=== PATIENT | female | born 1985 | race Two or more races ===

== ENCOUNTER 2016-11-01 21:32 | Emergency (ER) | payer SELFPAY ==
[2016-11-01 22:01] VITALS: BP 113/45
--- NOTE | 2016-11-01 22:05 | ER Document Report ---
ED Medical Screen (RME) - General Chief Complaint: Back Pain Stated Complaint: BODYACHES Notes: 31 yo female c/o low back, bilat hip and bilat leg pain x 1 week. reports injuring back while pouring grease out of 5 gallon bucket. + hx/o DDD, NF. feels familar to sciatic nerve pain. no fever. no bowel/bladder change. TRAVEL OUTSIDE OF THE [place] IN LAST 30 DAYS: No - Related Data Allergies/Adverse Reactions: fluoxetine HCl [From Prozac] Allergy (Intermediate, Verified 03/19/15 16:15) Hives Norgestimate-Ethinyl Estradiol * [From Ortho Tri-Cyclen Lo] Allergy ( Intermediate, Verified 03/19/15 16:15) Hives Past Medical History - Social History Chew tobacco use (# tins/day): No Frequency of alcohol use: Occasional Drug Abuse: None - Past Medical History Cardiac Medical History: Denies: Hx Heart Attack, Hx Hypertension Pulmonary Medical History: Reports: Hx Asthma Neurological Medical History: Denies: Hx Cerebrovascular Accident, Hx Seizures Renal/ Medical History: Denies: Hx Peritoneal Dialysis GI Medical History: Denies: Hx Hepatitis, Hx Hiatal Hernia, Hx Ulcer Infectious Medical History: Denies: Hx Hepatitis Past Surgical History: Denies: Hx Hysterectomy, Hx Mastectomy, Hx Open Heart Surgery, Hx Pacemaker - Immunizations Hx Diphtheria, Pertussis, Tetanus Vaccination: Yes Physical Exam - Vital signs Vitals: Temp Pulse Resp BP Pulse Ox 98.0 F 101 H 16 113/45 L 100 11/01/16 21:59 11/01/16 21:59 11/01/16 21:59 11/01/16 21:59 11/01/16 21:59 Course - Vital Signs Vital signs: Temp Pulse Resp BP Pulse Ox 98.0 F 101 H 16 113/45 L 100 11/01/16 21:59 11/01/16 21:59 11/01/16 21:59 11/01/16 21:59 11/01/16 21:59
[2016-11-02] MEDS ORDERED: HYDROMORPHONE HCL INJ/PF 2 MG/ML AMPULE IM ONE (01:31)
[2016-11-02] MEDS ORDERED: HYDROCODONE/ACETAMINOPHEN 5-325 MG 6 TAB/DSPK PO PRN (02:34)
--- NOTE | 2016-11-02 02:34 | ER Document Report ---
ED General - General Chief Complaint: Back Pain Stated Complaint: BODYACHES Notes: Patient is a 31-year-old female presents with complaint of low back pain radiates into her legs. The pain is mostly in the left side and radiates into her left leg. She's has a long history of low back pain with sciatica. She says it was exacerbated several days ago when she picked up a heavy bucket. Since then the pain is continued. Some numbness. No weakness into her leg. No loss of bowel control. No urinary retention. No fevers. No history of IV drug abuse. No other complaints this time. Pain feels very similar to pain she 's had the past. TRAVEL OUTSIDE OF THE [place] IN LAST 30 DAYS: No - Related Data Allergies/Adverse Reactions: fluoxetine HCl [From Prozac] Allergy (Intermediate, Verified 03/19/15 16:15) Hives Norgestimate-Ethinyl Estradiol * [From Ortho Tri-Cyclen Lo] Allergy ( Intermediate, Verified 03/19/15 16:15) Hives Past Medical History - Social History Smoking Status: Current Every Day Smoker Chew tobacco use (# tins/day): No Frequency of alcohol use: Occasional Drug Abuse: None Family History: Reviewed & Not Pertinent Patient has suicidal ideation: No Patient has homicidal ideation: No - Past Medical History Cardiac Medical History: Denies: Hx Heart Attack, Hx Hypertension Pulmonary Medical History: Reports: Hx Asthma Neurological Medical History: Denies: Hx Cerebrovascular Accident, Hx Seizures Renal/ Medical History: Denies: Hx Peritoneal Dialysis GI Medical History: Denies: Hx Hepatitis, Hx Hiatal Hernia, Hx Ulcer Infectious Medical History: Denies: Hx Hepatitis Past Surgical History: Reports: Hx Tubal Ligation. Denies: Hx Hysterectomy, Hx Mastectomy, Hx Open Heart Surgery, Hx Pacemaker - Immunizations Hx Diphtheria, Pertussis, Tetanus Vaccination: Yes Review of Systems - Review of Systems Notes: My Normal Review Basic REVIEW OF SYSTEMS: CONSTITUTIONAL : Denies fever, chills, or sweats. Denies recent illness. CARDIOVASCULAR: Denies chest pain. RESPIRATORY: Denies cough, cold, or chest congestion. Denies shortness of breath, difficulty breathing, or wheezing. GASTROINTESTINAL: Denies abdominal pain. Denies nausea, vomiting, or diarrhea. Denies constipation. Last BM: GENITOURINARY: Denies difficulty urinating, painful urination, burning, frequency, or blood in urine. MUSCULOSKELETAL: Back pain SKIN: Denies rash or skin lesions. NEUROLOGICAL: Denies altered mental status or loss of consciousness. Denies headache. Denies weakness or paralysis or loss of use of either side. Denies problems with gait or speech. Denies sensory or motor loss. ALL OTHER SYSTEMS REVIEWED AND NEGATIVE. Physical Exam - Vital signs Vitals: Temp Pulse Resp BP Pulse Ox 98.0 F 101 H 16 113/45 L 100 11/01/16 21:59 11/01/16 21:59 11/01/16 21:59 11/01/16 21:59 11/01/16 21:59 - Notes Notes: General Appearance: Well nourished, alert, cooperative, no acute distress, moderate obvious discomfort. Vitals: reviewed, See vital signs table. Head: no swelling or tenderness to the head Eyes: PERRL, EOMI, Conjuctiva clear Mouth: No decreasd moisture Back: Pain palpation over left lumbar paraspinal musculature. Some pain to left gluteal region. Extremities: strength 5/5 in all extremities, good pulses in all extremities, no swelling or tenderness in the extremities, no edema. Good strength with plantar and dorsiflexion against resistance on both feet. Good distal sensation. Normal Achilles reflex. Skin: warm, dry, appropriate color, no rash Neuro: speech clear, oriented x 3, normal affect, responds appropriately to questions. Course - Vital Signs Vital signs: Temp Pulse Resp BP Pulse Ox 98.0 F 101 H 16 113/45 L 100 11/01/16 21:59 11/01/16 21:59 11/01/16 21:59 11/01/16 21:59 11/01/16 21:59 - Transfer of Care Notes: 11/02/16 07:57 Patient will be discharged home. Patient looks well. She is feeling much improved of pain medicine. She has no signs or symptoms of central cord compression. She has no indication for emergent MRI. Encouraged return to ER immediately if she has worsening pain, leg weakness, loss of bowel control, or urinary retention. Patient agrees with plan and will be discharged home. Dictation of this chart was performed using voice recognition software; therefore, there may be some unintended grammatical errors. Discharge - Discharge Clinical Impression: Back pain Qualifiers: Back pain location: low back pain Chronicity: acute Back pain laterality: left Sciatica presence: with sciatica Sciatica laterality: sciatica of left side Qualified Code(s): M54.42 - Lumbago with sciatica, left side Condition: Good Disposition: HOME, SELF-CARE Additional Instructions: LOW BACK PAIN: Three out of every four people will have an episode of disabling back pain during their lifetime. Most commonly the pain is due to straining of the muscles and ligaments in the low back. Usual treatment includes: (1) Rest on a firm surface. Avoid lying on your stomach. (2) Ice pack the painful area. After a few days, gentle heat may be used intermittently to relax the area, or ice packs can be continued. (3) Medication may be needed -- muscle relaxers and antiinflammatory medicines are commonly used. (4) As the back improves, exercises are prescribed to strengthen the back and abdominal muscles. Your doctor will advise you on the proper care for your back at each stage in your recovery. You may be better in a few days -- or healing may take several weeks. If new symptoms of a "herniated disc" (radiation of pain, numbness, or tingling down the back of the leg or weakness in the leg) occur, you should be re-examined. Further testing may be necessary. PAIN MEDICATION INJECTION: You have received an injection of a pain medication. You should experience significant pain relief within 45 minutes. If this injection was a narcotic -- it will impair your judgement, slow your reaction time and make you sleepy (as well as relieve your pain). Narcotics also can cause nausea. You should not drive, work with machinery, or perform any task requiring mental alertness until all effects of the medication are gone -- six to eight hours. Do not take any alcohol, or sedatives, and do not take any other medication without checking with your physician. ORAL NARCOTIC MEDICATION: You have been given a prescription for pain control. This medication is a narcotic. It's best taken with food, as nausea can result if taken on an empty stomach. Don't operate machinery or drive within six hours of taking this medication. Do not combine this medicine with alcohol, or with any medication which can cause sedation (such as cold tablets or sleeping pills) unless you get permission from the physician. Narcotics tend to cause constipation. If possible, drink plenty of fluids and eat a diet high in fiber and fruits. Please be aware that prescription narcotics also have the potential for abuse. People become addicted to these medications because of the general sense of wellbeing that they induce. This feeling along with a significant reduction in tension, anxiety, and aggression provides a stimulating seductive quality to these drugs. Once your pain is under control, we encourage you to discard your unused narcotics. ICE PACKS: Apply ice packs frequently against the painful area. Many different schedules are recommended, such as "20 minutes on, 20 minutes off" or "one hour ice, two hours rest." If you need to work, you may need to go longer between ice treatments. You should plan to have the area ice packed AT LEAST one fourth of the time. The ice should be applied over the wrap, tape, or splint, or over a layer of cloth -- not directly against the skin. Some ice bags have a built-in cloth and can be put directly on the skin. WARM PACKS: After approximately two days, apply gentle heat (such as a heating pad or hot water bottle) for about 20 to 30 minutes about every two hours -- at least four times daily. Warmth and elevation will help you make a more rapid recovery , and will ease the pain considerably. Do not use HOT heat, and never apply heat for longer than 30 minutes. The continuous heat can invisibly damage skin and muscles -- even when no burn is seen on the surface. Damaged muscles can make you MORE sore. FOLLOW-UP CARE: If you have been referred to a physician for follow-up care, call the physician s office for an appointment as you were instructed or within the next two days. If you experience worsening or a significant change in your symptoms, notify the physician immediately or return to the Emergency Department at any time for re-evaluation. Return to ER immediately if you have worsening pain, leg weakness, loss of bowel control, or urinary retention. Please follow-up with your doctor for close reevaluation.
== END 2016-11-02 02:54 | disposition home or self-care (01) ==
LOC: ER 11-02 00:12
DX: M54.42 Lumbago with sciatica, left side (principal); M79.1 Myalgia; F17.200 Nicotine dependence, unspecified, uncomplicated; Z98.51 Tubal ligation status
CPT/HCPCS: 99283; 96372; J1170

== ENCOUNTER 2017-10-30 20:21 | Emergency (ER) | payer SELFPAY ==
[2017-10-30] MEDS ORDERED: ONDANSETRON 4 MG TAB.RAPDIS PO ONE (23:57)
--- NOTE | 2017-10-30 23:59 | ER Document Report ---
ED Medical Screen (RME) - General Chief Complaint: Vag Bleeding, +preg <12wks Stated Complaint: ABDOMINAL PAIN Time Seen by Provider: 10/30/17 23:57 Notes: 32-year-old female, chief complaint of sharp pains in her pelvic area, worse on the right side, also having vaginal spotting and vaginal discharge, she reports nausea, she denies fever or chills. She missed her last menstrual cycle. She has had a tubal ligation. She is sexually active with her fianc. She reports normal bowel movements. TRAVEL OUTSIDE OF THE [place] IN LAST 30 DAYS: No - Related Data Allergies/Adverse Reactions: fluoxetine HCl [From Prozac] Allergy (Intermediate, Verified 10/30/17 23:49) Hives Norgestimate-Ethinyl Estradiol * [From Ortho Tri-Cyclen Lo] Allergy ( Intermediate, Verified 10/30/17 23:49) Hives Past Medical History - General Last Menstrual Period: 09/11/2017 - Social History Chew tobacco use (# tins/day): No Frequency of alcohol use: None Drug Abuse: None - Past Medical History Cardiac Medical History: Denies: Hx Heart Attack, Hx Hypertension Pulmonary Medical History: Reports: Hx Asthma Neurological Medical History: Denies: Hx Cerebrovascular Accident, Hx Seizures Renal/ Medical History: Denies: Hx Peritoneal Dialysis GI Medical History: Denies: Hx Hepatitis, Hx Hiatal Hernia, Hx Ulcer Infectious Medical History: Denies: Hx Hepatitis Past Surgical History: Reports: Hx Tubal Ligation. Denies: Hx Hysterectomy, Hx Mastectomy, Hx Open Heart Surgery, Hx Pacemaker - Immunizations Hx Diphtheria, Pertussis, Tetanus Vaccination: Yes Physical Exam - Vital signs Vitals: Temp Pulse Resp BP Pulse Ox 98.5 F 59 L 16 121/64 98 10/30/17 22:02 10/30/17 22:02 10/30/17 22:02 10/30/17 22:02 10/30/17 22:02 - Abdominal Tenderness: Tender - Tender in the lower abdomen generally, she winces with palpation of both sides but worse on the right, exam limited by sitting position Course - Vital Signs Vital signs: Temp Pulse Resp BP Pulse Ox 98.5 F 69 18 123/64 99 10/30/17 23:52 10/30/17 23:52 10/30/17 23:52 10/30/17 23:52 10/30/17 23:52
[2017-10-31 00:23] LABS: ABSOLUTE BASOPHILS # (AUTO) 0.1 10^3/uL (0.0-0.2); ABSOLUTE EOSINOPHILS # (AUTO) 0.1 10^3/uL (0.0-0.6); ABSOLUTE LYMPHOCYTES (AUTO) 4.2 10^3/uL (0.5-4.7); ABSOLUTE MONOCYTES (AUTO) 0.7 10^3/uL (0.1-1.4); ABSOLUTE NEUT (AUTO) 6.9 10^3/uL (1.7-8.2); BASOPHILS % (AUTO) 0.7 % (0-2); HEMATOCRIT 40.2 % (36.0-47.0); HEMOGLOBIN 13.3 g/dL (12.0-15.5); LYMPHOCYTES % (AUTO) 35.1 % (13-45); MEAN CORPUSCULAR HEMOGLOBIN 29.4 pg (27.0-33.4); MEAN CORPUSCULAR HGB CONC 32.9 g/dL (32.0-36.0); MEAN CORPUSCULAR VOLUME 89 fl (80-97); MONOCYTES % (AUTO) 5.7 % (3-13); PLATELET COUNT 311 10^3/uL (150-450); RED BLOOD COUNT 4.51 10^6/uL (3.72-5.28); RED CELL DISTRIBUTION WIDTH 13.1 % (11.5-14.0); SEGMENTED NEUTROPHILS % (AUTO) 57.5 % (42-78); TOTAL CELLS COUNTED % (AUTO) 100 %; WHITE BLOOD COUNT 12.1 10^3/uL (4.0-10.5)
[2017-10-31 00:32] LABS: ALANINE AMINOTRANSFERASE 28 U/L (9-52); ALBUMIN 4.8 g/dL (3.5-5.0); ALKALINE PHOSPHATASE 64 U/L (38-126); ANION GAP 10 (5-19); ASPARTATE AMINO TRANSFERASE 18 U/L (14-36); BILIRUBIN,DIRECT 0.3 mg/dL (0.0-0.4); BILIRUBIN,TOTAL 0.4 mg/dL (0.2-1.3); BLOOD UREA NITROGEN 17 mg/dL (7-20); CALCIUM 9.8 mg/dL (8.4-10.2); CARBON DIOXIDE 23 mmol/L (22-30); CHLORIDE 105 mmol/L (98-107); GLUCOSE 94 mg/dL (75-110); POTASSIUM 4.4 mmol/L (3.6-5.0); SODIUM 138.4 mmol/L (137-145); TOTAL PROTEIN 7.5 g/dL (6.3-8.2)
[2017-10-31 00:37] LABS: AMORPHOUS SEDIMENT,URINE TRACE /HPF; APPEARANCE,URINE SLIGHTLY-CLOUDY; BILIRUBIN,URINE NEGATIVE (NEGATIVE); COLOR,URINE YELLOW; GLUCOSE, URINE NEGATIVE (NEGATIVE); KETONES,URINE TRACE mg/dL (NEGATIVE); LEUKOCYTE ESTERASE,URINE SMALL (NEGATIVE); NITRITE,URINE NEGATIVE (NEGATIVE); PROTEIN,URINE NEGATIVE (NEGATIVE); URINE SPECIFIC GRAVITY 1.019; UROBILINOGEN,URINE NEGATIVE mg/dL (<2.0)
--- NOTE | 2017-10-31 01:44 | RADIOLOGY REPORT (SQ) ---
EXAM DESCRIPTION: U/S NON OB PEL TV W/DOPPLER CLINICAL HISTORY: 32 years Female, sharp right pelvic pain, nausea COMPARISON: None. TECHNIQUE: Complete transvaginal pelvic ultrasound with Limited color and spectral Doppler imaging of the ovaries. FINDINGS: Uterus measures 9.3 x 4.6 x 3.8 cm. Endometrial thickness of 1.2 cm. Cervical length of 2.5 cm. No myometrial abnormalities. On cine loop there is movement of the endometrium which may represent initiation of menses. Right ovary measures 2.4 x 1.9 x 1.0 cm. Left ovary measures 2.6 x 2.1 x 1.8 cm. Arterial and venous flow identified in the ovaries bilaterally. No large adnexal masses. IMPRESSION: 1. No abnormality identified in the pelvis to explain patient's symptoms.
[2017-10-31 01:57] LABS: CHLAM PCR NOT DETECTED (NOT DETECT); GON PCR NOT DETECTED (NOT DETECT)
--- NOTE | 2017-10-31 02:15 | ER Document Report ---
ED General - General Chief Complaint: Vag Bleeding, +preg <12wks Stated Complaint: ABDOMINAL PAIN Time Seen by Provider: 10/30/17 23:57 Mode of Arrival: Ambulatory Information source: Patient Notes: This is a 32-year-old female 2 para 2, status post bilateral tubal ligation who presents to the emergency room with lower suprapubic tenderness. Patient states that she has gotten intermittent lower pelvic pain for the past 5 years since her tubal ligation. She denies any significant vaginal discharge at this time. She denies any fever, vomiting. TRAVEL OUTSIDE OF THE [place] IN LAST 30 DAYS: No - HPI Onset: Last week Onset/Duration: Gradual, Intermittent Quality of pain: Sharp Severity: Moderate Pain Level: 2 Associated symptoms: denies: Nonproductive cough, Diarrhea, Fever, Nausea, Vomiting, Shortness of breath Exacerbated by: Denies Relieved by: Denies Similar symptoms previously: Yes Recently seen / treated by doctor: No - Related Data Allergies/Adverse Reactions: fluoxetine HCl [From Prozac] Allergy (Intermediate, Verified 10/30/17 23:49) Hives Norgestimate-Ethinyl Estradiol * [From Ortho Tri-Cyclen Lo] Allergy ( Intermediate, Verified 10/30/17 23:49) Hives Past Medical History - General Information source: Patient Last Menstrual Period: 09/11/2017 - Social History Smoking Status: Current Every Day Smoker Cigarette use (# per day): Yes Chew tobacco use (# tins/day): No Frequency of alcohol use: None Drug Abuse: None Lives with: Family Family History: Reviewed & Not Pertinent Patient has suicidal ideation: No Patient has homicidal ideation: No - Past Medical History Cardiac Medical History: Denies: Hx Heart Attack, Hx Hypertension Pulmonary Medical History: Reports: Hx Asthma Neurological Medical History: Denies: Hx Cerebrovascular Accident, Hx Seizures Renal/ Medical History: Denies: Hx Peritoneal Dialysis GI Medical History: Denies: Hx Hepatitis, Hx Hiatal Hernia, Hx Ulcer Infectious Medical History: Denies: Hx Hepatitis Past Surgical History: Reports: Hx Tubal Ligation. Denies: Hx Hysterectomy, Hx Mastectomy, Hx Open Heart Surgery, Hx Pacemaker - Immunizations Hx Diphtheria, Pertussis, Tetanus Vaccination: Yes Review of Systems - Review of Systems Constitutional: denies: Chills, Fever EENT: No symptoms reported Cardiovascular: No symptoms reported Respiratory: No symptoms reported Gastrointestinal: See HPI Genitourinary: See HPI Female Genitourinary: No symptoms reported Musculoskeletal: No symptoms reported Skin: No symptoms reported Hematologic/Lymphatic: No symptoms reported Neurological/Psychological: No symptoms reported Physical Exam - Vital signs Vitals: Temp Pulse Resp BP Pulse Ox 98.5 F 59 L 16 121/64 98 10/30/17 22:02 10/30/17 22:02 10/30/17 22:02 10/30/17 22:02 10/30/17 22:02 Notes: Physical exam: GENERAL: 32-year-old female, alert and oriented 3, no acute distress HEAD: Atraumatic, normocephalic. EYES: Pupils equal round and reactive to light, extraocular movements intact, sclera anicteric, conjunctiva are normal. ENT: TMs normal, nares patent, oropharynx clear without exudates. Moist mucous membranes. NECK: Normal range of motion, supple without obvious mass or JVD. LUNGS: Breath sounds clear to auscultation bilaterally and equal. No wheezes rales or rhonchi. HEART: Regular rate and rhythm without murmurs, rubs or gallops. ABDOMEN: Soft, normoactive bowel sounds. No tenderness to palpation. No guarding, no rebound. No masses appreciated. EXTREMITIES: Normal range of motion, no pitting or edema. No clubbing or cyanosis. NEUROLOGICAL: Cranial nerves II through XII grossly intact. Normal speech, moving all extremities. PSYCH: Normal mood, normal affect. SKIN: Warm, Dry, normal turgor, no rashes or lesions noted. Course - Re-evaluation Re-evalutation: 10/31/17 02:16 Patient does have symptoms of UTI. Her urine does look like she has a UTI. A culture was sent. We will place her on antibiotics. - Vital Signs Vital signs: Temp Pulse Resp BP Pulse Ox 98.4 F 76 18 121/64 96 10/31/17 02:28 10/31/17 02:28 10/31/17 02:28 10/31/17 02:28 10/31/17 02:28 - Laboratory Result Diagrams: 10/30/17 23:59 10/30/17 23:59 Laboratory results interpreted by me: 10/30/17 10/30/17 23:59 23:59 WBC 12.1 H Urine Ketones TRACE H Urine Blood LARGE H Ur Leukocyte Esterase SMALL H - Diagnostic Test Radiology reviewed: Image reviewed, Reports reviewed - Transvaginal ultrasound shows normal ovaries Discharge - Discharge Clinical Impression: UTI Condition: Stable Disposition: HOME, SELF-CARE Instructions: Urinary Tract Infection ([facility]) Additional Instructions: As we discussed, the ultrasound showed that there was good blood flow to the ovaries. There is no problems with the pelvic structures. The urine analysis does show evidence of UTI. The cultures were otherwise negative. Thank you for choosing [facility] for your care. The examination and treatment you have received in the Emergency Department today has been rendered on an emergency basis only and is not intended to be a substitute for complete medical care. You should contact your doctor as it is important that she/he examine you for any new or remaining problems. If your problem worsens or new symptoms appear and you are unable to arrange prompt follow-up care, return to the Emergency Department. Specific signs to look out for: Worsening pain, fever (temperature 100.4), vomiting, not tolerating fluids Any other instructions: Follow-up with your [facility] doctor. Prescriptions: Sulfamethoxazole/Trimethoprim [Bactrim Ds Tablet] 1 each PO BID #10 tablet Referrals: RAMONITA UNDERWOOD MD [ACTIVE STAFF] - Follow up as needed (This is the number the [facility] clinic)
[2017-10-31 02:29] VITALS: BP 121/64
== END 2017-10-31 02:29 | disposition home or self-care (01) ==
LOC: ER 20:21
DX: N39.0 Urinary tract infection, site not specified (principal); R10.2 Pelvic and perineal pain; F17.210 Nicotine dependence, cigarettes, uncomplicated
CPT/HCPCS: 36415; 76830; 80053; 81001; 81025; 85025; 87086; 87491; 87591; 93976; 99284